=== PATIENT | female | born 1985 | race Caucasian/White ===

== ENCOUNTER 2017-07-06 08:28 | Emergency (ER) | payer SELFPAY ==
[2017-07-06 08:41] VITALS: BP 111/71; PULSE 72; TEMP 98.5; BMI 23.3
--- NOTE | 2017-07-06 09:38 | PDOC ---
History of Present Illness - General Chief Complaint: Sore Throat Stated Complaint: THROAT PAIN Time Seen by Provider: 07/06/17 09:11 History Source: Patient Exam Limitations: No Limitations - History of Present Illness Initial Comments: 07/06/17 09:33 Patient came for evaluation of sore throat pain, cold symptoms for 3 days. States is used [id number] medications with minimal resolved. Denies fever , no one else at home is sick. Timing/Duration: unsure Severity: mild, moderate Associated Symptoms: reports: fever/chills, malaise. denies: cough Past History - Travel Traveled outside of the country in the last 30 days: No Close contact w/someone who was outside of country & ill: No - Past Medical History Allergies/Adverse Reactions: Allergies Allergy/AdvReac Type Severity Reaction Status Date / Time No Known Allergies Allergy Verified 07/06/17 08:37 Home Medications: Ambulatory Orders Albuterol Sulfate Inhaler - [Ventolin HFA Inhaler -] 1 - 2 inh PO Q4H #1 inhaler 12/17/15 Asthma: No Cancer: No Cardiac Disorders: No COPD: No Diabetes: No HTN: No Seizures: No Thyroid Disease: No - Immunization History Immunization Up to Date: Yes - Suicide/Smoking/Psychosocial Hx Smoking Status: No Smoking History: Never smoked Have you smoked in the past 12 months: Yes Number of Cigarettes Smoked Daily: 2 If you are a former smoker, when did you quit?: 6mths Information on smoking cessation initiated: No Hx Alcohol Use: No Drug/Substance Use Hx: No Substance Use Type: None Hx Substance Use Treatment: No Review of Systems - Review of Systems Able to Perform ROS?: Yes Is the patient limited Icelandic proficient: Yes Constitutional: Yes: Symptoms Reported, See HPI, Malaise HEENTM: Yes: Symptoms Reported, See HPI, Nose Congestion Respiratory: Yes: Symptoms reported, See HPI ABD/GI: No: Symptoms Reported Integumentary: Yes: See HPI. No: Symptoms Reported All Other Systems: Reviewed and Negative *Physical Exam - Vital Signs Last Vital Signs Temp Pulse Resp BP Pulse Ox 98.5 F 72 16 111/71 100 07/06/17 08:37 07/06/17 08:37 07/06/17 08:37 07/06/17 08:37 07/06/17 08:37 - Physical Exam General Appearance: Yes: Nourished, Appropriately Dressed. No: Mild Distress HEENT: positive: EOMI, XANDER, Normal ENT Inspection, TMs Normal, Pharynx Normal ( no redness . swelling or exudate), Nasal Congestion, Rhinorrhea Neck: positive: Supple. negative: Lymphadenopathy (R), Lymphadenopathy (L) Respiratory/Chest: positive: Lungs Clear, Normal Breath Sounds Gastrointestinal/Abdominal: positive: Soft. 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 intact, Fully Oriented, Alert, Normal Mood/ Affect, Normal Response, Motor Strength 07/09 Medical Decision Making - Medical Decision Making 07/06/17 10:17 Rapid strep test negative, we'll treat conservatively for viral illness and have follow-up with PMD *DC/Admit/Observation/Transfer Diagnosis at time of Disposition: Viral illness - Discharge Dispostion Disposition: HOME Condition at time of disposition: Stable Admit: No - Referrals - Patient Instructions Printed Discharge Instructions: DI for Viral Syndrome Additional Instructions: Rest, drink lots of fluids: Teas, water, soups, Pedialyte Saltwater gargles Steamy showers/seem to face break up mucus Avoid contact with others until fevers and cough resolved Lots of handwashing and good hygiene Continue [id number] medications for symptomatic relief Tylenol or Motrin for fever and pain Followup with private physician in one to 2 days as needed Return to emergency department for worsened symptoms, fevers, dehydration - Post Discharge Activity Forms/Work/School Notes: Back to Work
== END 2017-07-06 10:18 | disposition home or self-care (01) ==
LOC: JERFT 08:28
DX: B34.9 Viral infection, unspecified (principal); Z87.891 Personal history of nicotine dependence
CPT/HCPCS: 87070; 87430; 99281-25